=== PATIENT | female | born 1965 | race Caucasian/White ===

== ENCOUNTER 2016-08-16 09:28 | Emergency (ER) | payer MEDICARE ==
[~2016-08-16] VITALS: Ht 177.8 cm; Wt 82.3 kg
[~2016-08-16 09:28] MED LIST: ATIVAN1 MG PO; AVENTYL,PAMELOR25 MG PO; BACTRIM,SEPT1 TABLET PO; ESCITALOPRAM OX20 MG PO; FLONASE16 G1 BOTH NARES; LEXAPRO20 MG PO; LIDOCAINE700 MG TD; LISINOPRIL10 MG PO; LORAZEPAM1 MG PO; MONTELUKAST SOD10 MG PO; NORTRIPTYLINE H25 MG PO; OLANZAPINE5 MG PO; PREVACID30 MG PO; PRINIVIL10 MG PO; SINGULAIR10 MG PO; ZYRTEC10 M3 PO
[2016-08-16 10:39] LABS: ADD MIUA? YES; BILIRUBIN NEGATIVE; BLOOD NEGATIVE; COLOR COLORLESS ((YELLOW)); GLUCOSE (STRIP) NEGATIVE; KETONES NEGATIVE; LEUKOCYTES TRACE; NITRITE NEGATIVE; PROTEIN (STRIP) NEGATIVE; SPECIFIC GRAVITY 1.003 (1.000-1.030); UROBILINOGEN 0.2 MG/DL (0.2-1.0)
[2016-08-16 10:41] LABS: HEMATOCRIT 41.9 % (36.0-46.0); MCH 28.8 PG (29.0-34.0); MCHC 32.7 G/DL (30.0-36.0); MCV 88.2 FL (83-99); MEAN PLAT.VOLUME 10.4 uM^3 (9.5-12.4); PLATELET COUNT 386 K/uL (156-360); RBC DIS.WIDTH-CV 12.3 % (11.8-14.6); RBC DIS.WIDTH-SD 39.7 % (39-53); RED BLOOD COUNT 4.75 M/uL (3.80-5.20); WHITE BLOOD COUNT 9.1 K/uL (4.1-10.2)
[2016-08-16 10:44] LABS: BACTERIA RARE /HPF; EPITHELIAL CELLS RARE /HPF; MUCUS NONE SEEN /LPF; RED BLOOD CELLS 0-5 /HPF (0-5); UCUL ADDED? NO; WHITE BLOOD CELLS 0-5 /HPF (0-5)
[2016-08-16 10:53] LABS: ADD MEDTOX COMMENT Y; AMPHETAMINE NEGATIVE (500 ng/mL); BARBITURATES NEGATIVE (200 ng/mL); BENZODIAZEPINES PRESUMPTIVE POSITIVE (150 ng/mL); COCAINE NEGATIVE (150 ng/mL); INTERNAL CONTROLS VALID? YES; METHADONE NEGATIVE (200 ng/mL); METHAMPHETAMINE NEGATIVE (500 ng/mL); OPIATES (MORPHINE) NEGATIVE (100 ng/mL); OXYCODONE NEGATIVE (100 ng/mL); PHENCYCLIDINE NEGATIVE (25 ng/mL); PROPOXYPHENE NEGATIVE (300 ng/mL); THC CANNABINOIDS NEGATIVE (50 ng/mL); TRICYCLIC ANTIDEPRESSANTS NEGATIVE (300 ng/mL)
[2016-08-16 11:00] LABS: CHLORIDE 103 mEq/L (99-109); POTASSIUM 3.8 mEq/L (3.7-5.4); SODIUM 139 mEq/L (136-147)
[2016-08-16 11:02] LABS: GLUCOSE 92 mg/dL (70-99)
[2016-08-16 11:03] LABS: ANION GAP 8 MEQ/L (2-14)
[2016-08-16 11:05] LABS: SERUM ETHYL ALCOHOL < 10 mg/dL
[2016-08-16 11:06] LABS: GFR ESTIMATE (CALCULATED) > 59 mL/min/; UREA NITROGEN (BUN) 7 mg/dL (9-23)
[2016-08-16 11:28] LABS: BENZODIAZEPINES QUANT VALUE 0 NG/ML; BENZODIAZEPINES, URINE SCREEN Negative (200 ng/mL)
[2016-08-16 13:55] VITALS: BP 125/84
== END 2016-08-16 14:14 | disposition home or self-care (01) ==
LOC: EME 09:28
PROVIDERS: Emergency Medicine
DX: F41.1 Generalized anxiety disorder (principal); F29 Unspecified psychosis not due to a substance or known physiological condition; R11.0 Nausea; Z73.3 Stress, not elsewhere classified; R45.83 Excessive crying of child, adolescent or adult; I10 Essential (primary) hypertension
CPT/HCPCS: 80048; 81003; 84443; 84999; 85027; 90839; 99281; 99284; G0480

== ENCOUNTER 2016-08-18 09:10 | Inpatient (IN) | payer MEDICARE ==
[~2016-08-18] VITALS: Ht 177.8 cm; Wt 77.8 kg
[2016-08-18] MEDS ORDERED: SEROQUEL100 MG PO (11:44)
[2016-08-18] MEDS ORDERED: LORAZEPAM1 MG PO (11:44)
[2016-08-18 12:18] LABS: ADD MEDTOX COMMENT Y; AMPHETAMINE NEGATIVE (500 ng/mL); BARBITURATES NEGATIVE (200 ng/mL); BENZODIAZEPINES PRESUMPTIVE POSITIVE (150 ng/mL); COCAINE NEGATIVE (150 ng/mL); INTERNAL CONTROLS VALID? YES; METHADONE NEGATIVE (200 ng/mL); METHAMPHETAMINE NEGATIVE (500 ng/mL); OPIATES (MORPHINE) NEGATIVE (100 ng/mL); OXYCODONE NEGATIVE (100 ng/mL); PHENCYCLIDINE NEGATIVE (25 ng/mL); PROPOXYPHENE NEGATIVE (300 ng/mL); THC CANNABINOIDS NEGATIVE (50 ng/mL); TRICYCLIC ANTIDEPRESSANTS NEGATIVE (300 ng/mL)
[2016-08-18 12:38] LABS: BENZODIAZEPINES QUANT VALUE 0 NG/ML; BENZODIAZEPINES, URINE SCREEN Negative (200 ng/mL)
[2016-08-18 13:09] LABS: EOSINOPHIL (%) 2.3 % (0-5); EOSINOPHIL COUNT 0.2 K/uL (0-0.3); HEMATOCRIT 39.9 % (36.0-46.0); IMMATURE GRANULOCYTE (%) 0.4 % (0.0-0.7); INSTRUMENT ABS NEUTROPHIL CT 5.4 K/uL; LYMPHOCYTE COUNT 1.9 K/uL (1.0-2.8); MCH 28.8 PG (29.0-34.0); MCHC 32.3 G/DL (30.0-36.0); MCV 89.1 FL (83-99); MEAN PLAT.VOLUME 10.8 uM^3 (9.5-12.4); MONOCYTE (%) 4.2 % (3-12); MONOCYTE COUNT 0.3 K/uL (0-0.8); NEUTROPHIL (%) 68.7 % (45-76); NEUTROPHIL COUNT 5.4 K/uL (1.8-6.4); PLATELET COUNT 344 K/uL (156-360); RBC DIS.WIDTH-CV 12.4 % (11.8-14.6); RBC DIS.WIDTH-SD 40.6 % (39-53); RED BLOOD COUNT 4.48 M/uL (3.80-5.20); WHITE BLOOD COUNT 7.8 K/uL (4.1-10.2)
[2016-08-18 13:22] LABS: CHLORIDE 105 mEq/L (99-109); POTASSIUM 3.7 mEq/L (3.7-5.4); SODIUM 142 mEq/L (136-147)
[2016-08-18 13:24] LABS: GLUCOSE 106 mg/dL (70-99)
[2016-08-18 13:25] LABS: ANION GAP 10 MEQ/L (2-14)
[2016-08-18 13:27] LABS: ALKALINE PHOSPHATASE 103 IU/L (3-129); SERUM ETHYL ALCOHOL < 10 mg/dL
[2016-08-18 13:28] LABS: GFR ESTIMATE (CALCULATED) > 59 mL/min/
[2016-08-18 13:29] LABS: UREA NITROGEN (BUN) 7 mg/dL (9-23)
[2016-08-18 13:41] LABS: QUANTITATIVE HCG < 4.0 MIU/ML
[2016-08-18 14:35] VITALS: BP 135/89
[2016-08-18] MEDS ORDERED: LEXAPRO20 MG PO (15:04)
[2016-08-18 15:30] VITALS: BP 135/89
[2016-08-19 07:27] VITALS: BP 103/64
[2016-08-19 15:39] VITALS: BP 124/78
[2016-08-20 07:35] VITALS: BP 113/72
[2016-08-20 16:39] VITALS: BP 134/83
[2016-08-21 08:00] VITALS: BP 108/66
[2016-08-21 15:34] VITALS: BP 105/67
[2016-08-22 07:45] VITALS: BP 129/74
[2016-08-22] MEDS ORDERED: METRONIDAZOLE500 MG PO (10:47)
[2016-08-22] MEDS ORDERED: DULOXETINE HCL30 MG PO (10:47)
[2016-08-22] MEDS ORDERED: ZYPREXA10 MG PO (10:47)
[2016-08-22] MEDS ORDERED: ESCITALOPRAM OX20 MG PO (10:59)
== END 2016-08-22 13:48 | disposition home or self-care (01) | DRG 885 ==
LOC: EME 09:10 → 1WEST 13:51 → EDOF 13:51 → 1WEST 13:51 → EDOF 14:19 → 1WEST 14:37
PROVIDERS: Emergency Medicine
DX: F22 Delusional disorders (principal); F33.9 Major depressive disorder, recurrent, unspecified; F23 Brief psychotic disorder; F41.1 Generalized anxiety disorder; G47.00 Insomnia, unspecified; I10 Essential (primary) hypertension; M79.7 Fibromyalgia; F42.8 Other obsessive-compulsive disorder; F28 Other psychotic disorder not due to a substance or known physiological condition
CPT/HCPCS: 80048; 80053; 81003; 84443; 84702; 84999; 85025; 85027; 90839; 99281; 99284; 99285; G0480